=== PATIENT | male | born 1940 | race Caucasian/White ===

== ENCOUNTER → 2023-08-08 09:02 | Outpatient (REF) | payer MEDICARE, SELFPAY ==
[2023-08-08 12:12] LABS: % Basophils 0.6 % (0-2); % Eosinophils 2.7 % (0-6); % Immature Granulocytes 0.2 % (0-0.5); % Lymphocytes 19.4 % (20.5-51.1); % Monocytes 8.2 % (1.7-9.3); % Neutrophils 68.9 % (42.2-75.2); Absolute Eosinophils 0.1 10^3/uL (0-0.7); Absolute Monocytes 0.4 10^3/uL (0.1-0.6); Absolute Neutrophils 3.6 10^3/uL (1.4-6.5); Hematocrit 39.5 % (39.0-52.0); Hemoglobin 13.4 g/dL (13.0-18.0); Mean Corp Hgb Conc. 33.9 g/dL (33.0-37.0); Mean Corpuscular Hgb 31.8 pg (27.0-31.0); Mean Corpuscular Volume 93.8 fL (80.0-94.0); Mean Platelet Volume 11.4 fL (7.4-10.4); Nucleated Red Blood Cells % 0 % (-); Platelet Count 150 10^3/uL (130-400); Red Blood Cell Count 4.21 10^6/uL (4.70-6.10); White Blood Cell Count 5.3 10^3/uL (4.8-10.8)
[2023-08-08 12:38] LABS: ALT (SGPT) 26 U/L (0-50); AST (SGOT) 30 U/L (17-59); Albumin 3.8 g/dl (3.5-5.0); Alkaline Phosphatase 31 U/L (38-126); Blood Urea Nitrogen 18 mg/dl (9-20); Calcium 9.2 mg/dl (8.4-10.2); Carbon Dioxide 26 mmol/L (22-30); Chloride 108 mmol/L (98-107); Glucose 124 mg/dl (70-99); HDL Cholesterol 36 mg/dl; LDL Cholesterol, Calculated 47 mg/dl; Potassium 4.4 mmol/L (3.5-5.1); Sodium 140 mmol/L (135-145); Total Bilirubin 0.5 mg/dl (0.2-1.3); Total Cholesterol 105 mg/dl (50-199); Total Protein 6.5 g/dl (6.3-8.2); Triglyceride 112 mg/dl (10-149); Very Low Density Lipoprotein 22 mg/dl (0-30); eGFR > 60.00
[2023-08-08 12:39] LABS: Urine Albumin Negative (Neg - Trace); Urine Bilirubin Negative (Negative); Urine Character Clear (Clear); Urine Color Yellow; Urine Glucose Negative (Negative); Urine Ketone Negative (Negative); Urine Leukocyte Negative (Negative); Urine Nitrite Negative (Negative); Urine Occult Blood Negative (Negative); Urine Specific Gravity 1.015 (<1.030); Urine Urobilinogen Negative (Neg - 1+)
[2023-08-08 12:41] LABS: PSA, Total - Screen 0.48 ng/ml (0.0-4.0); TSH Reflex To Free T4 1.64 uIU/ml (0.47-4.68)
[2023-08-08 13:20] LABS: Microalbumin, Random Urine 0.7 mg/dl (0.6-1.7); Microalbumin/creatinine Ratio 6.6 mg/g
[2023-08-08 14:00] LABS: Glycohemoglobin (HgbA1c) 6.2 % (4.0-5.6)
== END ==
LOC: HWLAB 09:02
PROVIDERS: ATTENDING PHYSICIAN Family Medicine
DX: Z87.438 Personal history of other diseases of male genital organs (principal); E11.69 Type 2 diabetes mellitus with other specified complication; E78.5 Hyperlipidemia, unspecified
CPT/HCPCS: 36415; 80053; 80061; 81003; 82043; 82570; 83036; 84443; 85025; G0103

== ENCOUNTER → 2024-03-13 09:20 | Outpatient (REF) | payer MEDICARE, SELFPAY ==
[2024-03-13 12:41] LABS: Glycohemoglobin (HgbA1c) 6.1 % (4.0-5.6)
[2024-03-13 13:46] LABS: Microalbumin, Random Urine 0.7 mg/dl (0.6-1.7); Microalbumin/creatinine Ratio 6.1 mg/g
[2024-03-13 14:04] LABS: ALT (SGPT) 26 U/L (0-50); Albumin 4.2 g/dl (3.5-5.0); Alkaline Phosphatase 40 U/L (38-126); Blood Urea Nitrogen 22 mg/dl (9-20); Calcium 9.3 mg/dl (8.4-10.2); Carbon Dioxide 29 mmol/L (22-30); Chloride 103 mmol/L (98-107); Glucose 120 mg/dl (70-99); HDL Cholesterol 42 mg/dl; LDL Cholesterol, Calculated 59 mg/dl; Potassium 4.5 mmol/L (3.5-5.1); Sodium 142 mmol/L (135-145); Total Bilirubin 0.4 mg/dl (0.2-1.3); Total Cholesterol 134 mg/dl (50-199); Total Protein 6.7 g/dl (6.3-8.2); Triglyceride 168 mg/dl (10-149); Very Low Density Lipoprotein 33 mg/dl (0-30); eGFR > 60.00
[2024-03-13 16:56] LABS: AST (SGOT) 26 U/L (17-59)
== END ==
LOC: HWLAB 09:20
PROVIDERS: ATTENDING PHYSICIAN Family Medicine
DX: E11.69 Type 2 diabetes mellitus with other specified complication (principal)
CPT/HCPCS: 36415; 80053; 80061; 82043; 82570; 83036

== ENCOUNTER → 2024-06-18 15:09 | Outpatient (REF) | payer MEDICARE, SELFPAY | LOC: HWRAD 15:09 | DX: R07.81 Pleurodynia (principal) | CPT/HCPCS: 71046 ==

== ENCOUNTER → 2024-08-12 10:44 | Outpatient (REF) | payer MEDICARE, SELFPAY | LOC: HWRAD 10:44 | PROVIDERS: ATTENDING PHYSICIAN Ophthalmology | DX: H34.212 Partial retinal artery occlusion, left eye (principal) | CPT/HCPCS: 93880 ==

== ENCOUNTER → 2024-09-14 08:56 | Outpatient (REF) | payer MEDICARE, SELFPAY ==
[2024-09-14 12:11] LABS: Urine Character Clear (Clear)
[2024-09-14 12:13] LABS: Hematocrit 39.2 % (39.0-52.0); Hemoglobin 13.4 g/dL (13.0-18.0); Mean Corp Hgb Conc. 34.2 g/dL (33.0-37.0); Mean Corpuscular Volume 94.0 fL (80.0-94.0); Nucleated Red Blood Cells % 0 % (-); Platelet Count 152 10^3/uL (130-400); Red Cell Dist. Width 12.3 % (11.5-14.5)
[2024-09-14 13:33] LABS: Glycohemoglobin (HgbA1c) 6.0 % (4.0-5.6)
[2024-09-14 14:09] LABS: ALT (SGPT) 24 U/L (0-50); AST (SGOT) 24 U/L (17-59); Albumin 4.2 g/dl (3.5-5.0); Alkaline Phosphatase 39 U/L (38-126); Blood Urea Nitrogen 14 mg/dl (9-20); Calcium 9.0 mg/dl (8.4-10.2); Carbon Dioxide 27 mmol/L (22-30); Chloride 109 mmol/L (98-107); Glucose 129 mg/dl (70-99); HDL Cholesterol 41 mg/dl; LDL Cholesterol, Calculated 64 mg/dl; Potassium 4.2 mmol/L (3.5-5.1); Sodium 141 mmol/L (135-145); Total Protein 6.8 g/dl (6.3-8.2); Very Low Density Lipoprotein 18 mg/dl (0-30); eGFR > 60.00
[2024-09-14 14:28] LABS: PSA, Total - Screen 0.50 ng/ml (0.0-4.0)
[2024-09-14 15:26] LABS: Microalb - Urine Creatinine 153.900 mg/dl
[2024-09-14 15:31] LABS: Microalbumin, Random Urine 1.1 mg/dl (0.6-1.7)
== END ==
LOC: HWLAB 08:56
PROVIDERS: ATTENDING PHYSICIAN Family Medicine
DX: E11.69 Type 2 diabetes mellitus with other specified complication (principal); E78.5 Hyperlipidemia, unspecified; Z12.5 Encounter for screening for malignant neoplasm of prostate
CPT/HCPCS: 36415; 80053; 80061; 81003; 82043; 82570; 83036; 84443; 85025; G0103